=== PATIENT | female | born 1970 | race Caucasian/White ===

== ENCOUNTER 2019-04-14 11:32 | Emergency (ER) | payer BC ==
[~2019-04-14] VITALS: Ht 152.4 cm; Wt 66.7 kg
[2019-04-14] MEDS ORDERED: EFFEXOR XR75 MG PO (13:28)
[2019-04-14] MEDS ORDERED: VALACYCLOVIR1000 MG PO (13:28)
[2019-04-14] MEDS ORDERED: SIMVASTATIN20 MG PO (13:29)
[2019-04-14] MEDS ORDERED: COZAAR 25 MG TA25 M1 PO (13:29)
[2019-04-14] MEDS ORDERED: LOSARTAN POTAS100 MG PO (13:29)
[2019-04-14] MEDS ORDERED: SYNTHROID50 MCG PO (13:29)
[2019-04-14] MEDS ORDERED: PROVERA10 MG PO (13:30)
[2019-04-14] MEDS ORDERED: CLONIDINE0.1 PO (13:30)
[2019-04-14] MEDS ORDERED: NORVASC5 MG PO (13:31)
[2019-04-14] MEDS ORDERED: XANAX 0.5 MG0.5 M1 PO (13:31)
[2019-04-14 13:59] LABS: ABSOLUTE NEUTROPHILS 5.2 thou/uL (1.4-8.2); BASOPHILS 0.7 % (0.0-2.0); EOSINOPHILS 0.6 % (0.0-3.0); HEMATOCRIT 41.4 % (37.0-47.0); HEMOGLOBIN 14.5 gm/dL (12.0-15.0); LYMPHOCYTES 7.6 % (24.0-44.0); MCH 32.8 pg (26.0-34.0); MCV 93.8 fL (80.0-100.0); MONOCYTES 3.8 % (1.0-8.0); PLATELET COUNT 173 thou/uL (150-400); POLYS 87.3 % (36.0-66.0); RBC 4.41 mil/uL (4.20-5.00); RDW 12.7 % (10.5-14.5); WBC 5.9 thou/uL (4.0-11.0)
[2019-04-14 14:03] LABS: URINE BILIRUBIN NEGATIVE (Negative); URINE BLOOD 3+ (Negative); URINE CLARITY CLEAR; URINE COLOR YELLOW; URINE GLUCOSE-RANDOM* NEGATIVE (Negative); URINE KETONES 1+ (Negative); URINE LEUKOCYTES-REFLEX TRACE (Negative); URINE PROTEIN (DIPSTICK) TRACE (Negative); URINE SPECIFIC GRAVITY >= 1.030 (1.005-1.035); URINE UROBILINOGEN 0.2 E.U./dl (0.2-1.0)
[2019-04-14 14:04] LABS: URINE NITRITE-REFLEX POSITIVE (Negative)
[2019-04-14 14:10] LABS: CALCIUM 9.3 mg/dL (8.5-10.1); CREATININE 0.8 mg/dL (0.6-1.0); POTASSIUM 3.5 mmol/L (3.5-5.1)
[2019-04-14 14:14] LABS: APTT 42.1 Seconds (24.5-32.8)
[2019-04-14 14:15] LABS: CASTS None Seen /LPF (None Seen); SQUAMOUS 4-10 Moderate /LPF (0-3); URINE RBC 3-10 Few /HPF (0-2)
[2019-04-14 14:16] LABS: ALBUMIN 3.3 g/dL (3.4-5.0); BACTERIA-REFLEX >30 Many /HPF (None Seen); CRYSTALS None Seen /LPF (None Seen); MUCUS >6 Heavy strn/LPF (None Seen); TOTAL BILIRUBIN 0.3 mg/dL (<0.1-1.0); TOTAL PROTEIN 7.9 g/dL (6.4-8.2)
[2019-04-14] MEDS ORDERED: VENTOLIN HFA 1818 GM INH (15:36)
[2019-04-14] MEDS ORDERED: AUGMENTIN 875-1 EACH PO (15:36)
[2019-04-14] MEDS ORDERED: ALBUTEROL0.63 MG/3 INH (15:36)
[2019-04-14] MEDS ORDERED: PREDNISONE 10 M10 MG PO (15:36)
[2019-04-14 16:00] VITALS: BP 123/73
--- NOTE | 2019-04-15 11:44 | EKG ---
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
== END 2019-04-14 16:41 | disposition home or self-care (01) ==
LOC: ER 11:32
PROVIDERS: Physician Assistant
DX: J18.9 Pneumonia, unspecified organism (principal); N39.0 Urinary tract infection, site not specified; E86.0 Dehydration; F17.200 Nicotine dependence, unspecified, uncomplicated; I10 Essential (primary) hypertension; F32.9 Major depressive disorder, single episode, unspecified; F41.9 Anxiety disorder, unspecified; E03.9 Hypothyroidism, unspecified; E78.00 Pure hypercholesterolemia, unspecified; Z88.8 Allergy status to other drugs, medicaments and biological substances